=== PATIENT | female | born 1975 | race Caucasian/White ===

== ENCOUNTER 2017-05-06 18:10 | Emergency (ER) | payer BC ==
[~2017-05-06] VITALS: Ht 170.2 cm; Wt 77.1 kg
[2017-05-06] MEDS ORDERED: METHYLPREDNISOLO4 M1 PO (18:24)
[2017-05-06] MEDS ORDERED: NORCO 5-325 TA1 EACH PO (18:24)
[2017-05-06] MEDS ORDERED: BACLOFEN10 MG PO (18:24)
[2017-05-06] MEDS ORDERED: GEODON80 MG NG (18:33)
== END 2017-05-06 18:34 | disposition home or self-care (01) ==
LOC: ED 18:10
DX: M54.42 Lumbago with sciatica, left side (principal); Z79.52 Long term (current) use of systemic steroids
CPT/HCPCS: 99283